=== PATIENT | male | born 1995 | race Two or more races ===

== ENCOUNTER 2023-01-22 20:53 | Emergency (ER) | payer SELFPAY ==
[~2023-01-22] VITALS: Ht 177.8 cm; Wt 96.2 kg
[2023-01-22 21:09] VITALS: BP 139/88
== END 2023-01-23 00:33 | disposition home or self-care (01) ==
LOC: ER 20:53
DX: S00.83XA Contusion of other part of head, initial encounter (principal); S00.432A Contusion of left ear, initial encounter; W18.09XA Striking against other object with subsequent fall, initial encounter
CPT/HCPCS: 70450; 70486; 72125; 99283-25